=== PATIENT | male | born 2000 | race Caucasian/White ===

== ENCOUNTER 2022-09-24 21:25 | Emergency (ER) | payer OTHER, SELFPAY ==
[2022-09-24 21:37] VITALS: BP 117/67; PULSE 102; RESP 16; TEMP 36.2; O2SAT 96; BMI 24.4
--- NOTE | 2022-09-24 21:43 | ED.GENADULT ---
HPI - General Adult General Chief complaint: Nausea/Vomiting Stated complaint: vomiting and diarrhea Time Seen by Provider: 09/24/22 21:38 History of Present Illness HPI narrative: This 22-year-old male comes in reporting multiple episodes of vomiting that began this afternoon. He states that he is vomited approximately 15 times. Did have associated lightheadedness and did have a brief loss of consciousness. He is not describing any pain. He has not had any fevers. He arrives with normal vital signs except his heart is slightly tachycardic. Related Data Home Medications Medication Instructions Recorded Confirmed No Known Home Medications 09/24/22 09/24/22 Allergies Allergy/AdvReac Type Severity Reaction Status Date / Time No Known Drug Allergies Allergy Verified 09/24/22 21:40 Review of Systems Status of ROS: Reports: 10 or more systems reviewed and unremarkable except as noted in History and below Narrative: Constitutional: No fevers, no weight gain or loss. Eyes: No discharge. No vision changes. HENT: No congestion, no sore throat, no ear pain. Cardiovascular: No chest pain, no palpitations. Respiratory: No shortness of breath, no wheezes, no cough. Gastrointestinal: No abdominal pain. Nausea and vomiting. No diarrhea. Genitourinary: No dysuria, no hematuria. Musculoskeletal: Normal range of motion. Skin: No rashes, no pruritis. Neurological: No dizziness, weakness, sensory change, speech change. Endo/Heme/Allergies: No bruising or bleeding. No polydipsia. Pysch: no suicidality, no anxiety, no insomnia. All other systems reviewed and are negative. [facility] Social History Smoking Status: Never smoker Do you use any of these nicotine containing products: None How often do you have a drink containing alcohol: never AUDIT-C Alcohol total score: 0 Non-prescribed substance use: denies use Exam Narrative: Exam Narrative: Constitutional: Well-developed, well-nourished, no acute distress. HEENT: Normocephalic, atraumatic. Neck: Normal range of motion. Nontender. Supple. Heart: Regular. No murmurs. Normal rate. Intact distal pulses. Lungs: Clear to auscultation. No chest discomfort. No wheezes, rhonchi, or rales. Abdomen: Normal bowel sounds. Nontender. No rebound tenderness. Genitalia: Deferred. Back: No midline tenderness. Normal range of motion. Extremities: Normal range of motion. No injury. Skin: Intact. No rash. Warm. No erythema or pallor. Neurologic: No altered sensation. No weakness. Alert and oriented. Psychiatric: No suicidality. No anxiety or depression. No insomnia. Nursing notes and vitals signs are reviewed. Const: Vital Signs, click to edit/add: Vital Signs - 24 hr 09/24/22 21:37 Temperature 97.1 F L Pulse Rate [Left P ulse Oximeter] 102 H Respiratory Rate 16 Blood Pressure [Ri ght Upper Arm] 117/67 Pulse Oximetry 96 Oxygen Delivery Me thod Room Air Course Vital Signs Vital signs: Initial Vital Signs Temperature 97.1 F L 09/24/22 21:37 Temperature Source Temporal Artery Scan 09/24/22 21:37 Pulse Rate 102 H 09/24/22 21:37 Respiratory Rate 16 09/24/22 21:37 Blood Pressure 117/67 09/24/22 21:37 Blood Pressure Mean 83 09/24/22 21:37 Pulse Oximetry 96 09/24/22 21:37 Oxygen Delivery Method Room Air 09/24/22 21:37 Vital Signs Temperature 97.1 F L 09/24/22 21:37 Pulse Rate 102 H 09/24/22 21:37 Respiratory Rate 16 09/24/22 21:37 Blood Pressure 117/67 09/24/22 21:37 Pulse Oximetry 96 09/24/22 21:37 Oxygen Delivery Method Room Air 09/24/22 21:37 Temperature 97.1 F L 09/24/22 21:37 Pulse Rate 102 H 09/24/22 21:37 Respiratory Rate 16 09/24/22 21:37 Blood Pressure 117/67 09/24/22 21:37 Pulse Oximetry 96 09/24/22 21:37 Oxygen Delivery Method Room Air 09/24/22 21:37 Medical Decision Making MDM Narrative Medical decision making narrative: This patient comes in with vomiting episodes. An IV was established and the patient received a L of normal saline along with 4 mg of Zofran. His nausea and vomiting markedly improved. He has had some diarrhea recently. Lab results returned with reassuring findings. The patient is okay to be discharged home and encouraged to increase his diet as tolerated. He did receive a prescription for Zofran. Lab Data Labs: Lab Results 09/24/22 Range/Units 22:00 WBC 9.31 (4.50-11.00) K/uL RBC 5.79 (4.30-5.90) m/uL Hgb 17.2 (13.5-17.5) gm/dL Hct 50.2 (37.0-53.0) % MCV 87 (80-100) fL MCH 30 (26-34) pg MCHC 34 (32-36) gm/dL RDW Coeff of Amber 11.5 (11.5-15.5) % Plt Count 223 (140-440) K/uL Neut % (Auto) 87.6 H (42.0-72.0) % Lymph % (Auto) 4.8 L (20-44) % [place] % (Auto) 6.1 (0.0-11.0) % Eos % (Auto) 0.6 (0.0-7.0) % Baso % (Auto) 0.1 (0.0-3.0) % Neut # (Auto) 8.20 H (1.7-7.0) K/uL Lymph # (Auto) 0.40 L (0.90-2.90) K/uL [place] # (Auto) 0.60 (0.00-0.90) K/UL Eos # (Auto) 0.06 (0.00-0.50) K/uL Baso # (Auto) 0.01 (0.00-0.30) K/uL Sodium 140 (135-149) mmol/L Potassium 4.6 (3.6-5.1) mmol/L Chloride 105 (96-114) mmol/L Carbon Dioxide 23 (20-32) mmol/L BUN 20 (5-24) mg/dL Creatinine 0.9 (0.5-1.5) mg/dL Estimated Creat Clear 143.70 Estimated GFR 125 ml/min Glucose 119 H (60-115) mg/dL Calcium 9.3 (8.4-10.6) mg/dL Discharge Plan Discharge Clinical Impression: Gastroenteritis Patient Disposition: Home, Self-Care Condition: Improved Instructions: Acute Nausea and Vomiting (ED) Additional Instructions: Take medication as needed and directed. Follow up with MD or return if worsening. Prescriptions: No Action No Known Home Medications Follow Up/Referrals: Provider,Not a Local [Primary Care Provider] - Stand Alone Forms: [employer] Info Instructions
--- OUTSIDE RECORDS SUMMARY | 2022-09-24 22:01 | XMS_ITS ---
Author Name Lenard Ferrera PA-C Organization Unknown Care Team Providers Care Rn Field Name Role Phone Lenard Ferrera PA-C Unavailable Unavailable Juliette Chavez MA/XRT Unavailable Unavailable Lenard Ferrera PA-C Unavailable Unavailable ALLERGIES * No known allergy CHIEF COMPLAINT * P/C: Possible [place] [facility]/blood shot eyes FUNCTIONAL AND COGNITIVE STATUS * No functional and cogntive status documented IMMUNIZATIONS * No immunizations documented MEDICATIONS Medication Start Date Stop Date Modified Date Dose Formulation Route Frequency Status ofloxacin 2 0.3 % drops to affected eye Every 4 hours for 7 days active Methylphenidate Unknown 05/14/2022 by malathi [facility] Take twice a day before breakfast and lunch active PLAN OF CARE * No plan of care documented PROBLEMS * No clinical problems documented PROCEDURES * No procedure documented REASON FOR REFERRAL No reason for referral documented REASON FOR VISIT Exam started at 10:52 05/14/2022. RESULTS * No lab result documented SOCIAL HISTORY * Patient is a former smoker. VITAL SIGNS * Height: 72 inch * Weight: 183 lb * BMI: 24.8 * BSA: 2.1 * BP: 113/60 * Pulse: 92 /min * Respiration: 20 /min * Temperature: 98.2 * Pulse Ox: 99 % ENCOUNTERS * Acute Conjunctivitis
[2022-09-24] MEDS: 0.9 % SODIUM CHLORIDE 1000 ml 1,000 ML IV (22:08)
[2022-09-24] MEDS: ONDANSETRON 2 MG/ML inj 4 MG IVP ×2 (22:08→23:07)
[2022-09-24 22:28] LABS: Chloride* 105 mmol/L (96-114); Potassium* 4.6 mmol/L (3.6-5.1); Sodium* 140 mmol/L (135-149)
[2022-09-24 22:31] LABS: Blood Urea Nitrogen* 20 mg/dL (5-24); Calcium* 9.3 mg/dL (8.4-10.6); Carbon Dioxide* 23 mmol/L (20-32); Creatinine* 0.9 mg/dL (0.5-1.5); Estimated Glomerular Filt Rate 125 ml/min; Glucose* 119 mg/dL (60-115)
[2022-09-24 22:39] LABS: Basophils Absolute Auto 0.01 K/uL (0.00-0.30); Basophils Percent Auto 0.1 % (0.0-3.0); Eosinophils Absolute Auto 0.06 K/uL (0.00-0.50); Eosinophils Percent Auto 0.6 % (0.0-7.0); Hematocrit 50.2 % (37.0-53.0); Hemoglobin* 17.2 gm/dL (13.5-17.5); Immature Granulocytes Abs Auto 0.07 K/uL (0.00-0.30); Immature Granulocytes Pct Auto 0.8 %; Lymphocytes Percent Auto 4.8 % (20-44); Mean Corpuscular HGB Conc 34 gm/dL (32-36); Mean Corpuscular Hemoglobin 30 pg (26-34); Mean Corpuscular Volume 87 fL (80-100); Monocytes Percent Auto 6.1 % (0.0-11.0); Neutrophils Percent Auto 87.6 % (42.0-72.0); Platelet Count* 223 K/uL (140-440); RDW Coefficient of Variation % 11.5 % (11.5-15.5); Red Blood Count 5.79 m/uL (4.30-5.90); White Blood Count* 9.31 K/uL (4.50-11.00)
[2022-09-24 22:50] LABS: Slide Review Reflex No
--- NOTE | 2022-09-25 13:17 | ED.NURSE ---
Patient calls with questions re: how to use zofran prescribed, BRAT diet, diarrhea. Discussed slow diet reintroduction, proper use of zofran, BRAT diet when tolerating fluids. Patient denies questions.
== END 2022-09-24 23:13 | disposition home or self-care (01) ==
PROVIDERS: Emergency Provider Emergency Medicine Emergency Medical Services
DX: K52.9 Noninfective gastroenteritis and colitis, unspecified (principal)
CPT/HCPCS: 36415; 80048; 85025; 96374; 96376; 99284; J2405; J7030